=== PATIENT | female | born 1980 | race African-American/Black ===

== ENCOUNTER 2016-05-28 07:05 | Emergency (ER) | payer MEDICAID, OTHER ==
[~2016-05-28] VITALS: Ht 165.1 cm; Wt 75.0 kg
[~2016-05-28 07:05] MED LIST: HYDR50 PO; LORA-392 PO; PREV15CA20 PO; ZOFR4TAB3 SL
[2016-05-28 07:09] VITALS: BP 108/58; PULSE 82; RESP 20; TEMP 97.9; O2SAT 100
--- NOTE | 2016-05-28 07:33 | PD ---
HPI Chief Complaint: Musculoskeletal Complaint Time Seen by Provider: 07:25 Travel History International Travel<30 days: No Contact w/Intl Traveler<30days: No Traveled to known affect area: No History of Present Illness HPI This is a 35-year-old female who presents to the emergency department with muscle cramps describes the muscle cramps as in her left upper chest and in her back. She says she always gets these when she gets dehydrated. She says multiple times in the past she's come in for this and she stated to get IV fluids and she feels much better afterwards. She says it happens a couple times a year. Her symptoms of been moderate, constant since last evening, and keeping her from sleeping. She denies any associated shortness of breath, diaphoresis or nausea. She denies any medical problems with no hypertension, hyperlipidemia, or diabetes. She does smoke marijuana. She denies any cocaine use or other illicit drugs. PFSH Past Medical History Diminished Hearing: No Immunizations Current: No Migraines: Yes Tetanus Vaccination: < 5 Years ?: Not LMP: 05/27/16 Past Surgical History Neurologic Surgery: Yes (HEAD SX DUE TO TRAUMA AND LAC REPAIR TO FOREHEAD ) Social History Alcohol Use: Yes (OCCASIONAL ) Tobacco Use: Yes (1 PPD ) Substance Use: Yes (USE CRACK COCAINE AND MARIJUANA ) Allergies-Medications (Allergen,Severity, Reaction): Coded Allergies: Penicillin (Verified Allergy, Severe, UNKNOWN, 05/28/16) Reported Meds & Prescriptions Reported Meds & Active Scripts Active No Active Prescriptions or Reported Medications Review of Systems Except as stated in HPI: all other systems reviewed are Neg Physical Exam Narrative GENERAL:Well appearing, no acute distress SKIN: Warm and dry. HEAD: Atraumatic. Normocephalic. EYES: Pupils equal and round. No injection or drainage. ENT: Moist mucous membranes NECK: Trachea midline. CARDIOVASCULAR: Regular rate and rhythm. No murmur appreciated. RESPIRATORY: Clear to auscultation. Breath sounds equal bilaterally. GASTROINTESTINAL: Abdomen soft, non-tender, nondistended. MUSCULOSKELETAL: No obvious deformities. NEUROLOGICAL: Awake and alert. No obvious cranial nerve deficits. Moving all extremities. PSYCHIATRIC: Appropriate mood and affect; insight and judgment normal. Data Data Last Documented VS Vital Signs Date Time Temp Pulse Resp B/P Pulse Ox O2 Delivery O2 Flow Rate FiO2 05/28/16 07:09 97.9 82 20 108/58 100 Room Air Orders Complete Blood Count With Diff (05/28/16 07:30) Basic Metabolic Panel (Bmp) (05/28/16 07:30) Creatine Kinase (Cpk) (05/28/16 07:30) ^ Insert Iv (05/28/16 07:30) Sodium Chlor 0.9% 1000 Ml Inj (Ns 1000 M (05/28/16 08:15) CKMB (05/28/16 07:30) CKMB% (05/28/16 07:30) Labs Laboratory Tests Test 05/28/16 07:30 White Blood Count 5.2 TH/MM3 Red Blood Count 4.29 MIL/MM3 Hemoglobin 12.4 GM/DL Hematocrit 38.0 % Mean Corpuscular Volume 88.6 FL Mean Corpuscular Hemoglobin 28.9 PG Mean Corpuscular Hemoglobin 32.6 % Concent Red Cell Distribution Width 13.4 % Platelet Count 223 TH/MM3 Mean Platelet Volume 7.5 FL Neutrophils (%) (Auto) 36.1 % Lymphocytes (%) (Auto) 49.6 % Monocytes (%) (Auto) 9.1 % Eosinophils (%) (Auto) 4.4 % Basophils (%) (Auto) 0.8 % Neutrophils # (Auto) 1.9 TH/MM3 Lymphocytes # (Auto) 2.6 TH/MM3 Monocytes # (Auto) 0.5 TH/MM3 Eosinophils # (Auto) 0.2 TH/MM3 Basophils # (Auto) 0.0 TH/MM3 CBC Comment DIFF FINAL Differential Comment Sodium Level 140 MEQ/L Potassium Level 3.8 MEQ/L Chloride Level 107 MEQ/L Carbon Dioxide Level 27.7 MEQ/L Anion Gap 5 MEQ/L Blood Urea Nitrogen 12 MG/DL Creatinine 0.94 MG/DL Estimat Glomerular Filtration 81 ML/MIN Rate Random Glucose 79 MG/DL Calcium Level 8.1 MG/DL Total Creatine Kinase 321 U/L MDM Medical Decision Making Medical Screen Exam Complete: Yes Emergency Medical Condition: Yes Interpretation(s) Afebrile, no tachycardia, normotensive No leukocytosis Electrolytes are reassuring Differential Diagnosis Dehydration, electrolyte abnormality, acute coronary syndrome Narrative Course This is a 35-year-old female who presents to the emergency department with left- sided chest discomfort that she describes as muscle cramps that she's had before. She think she needs IV fluids. She is placed on a monitor and an IV was established. EKG was nonischemic. She has no risk factors for heart disease. Labs are obtained which were reassuring with a mildly elevated CK. She was given 2 L of IV fluids and feels much better. Patient will be discharged. Diagnosis Primary Impression: Muscle cramps Patient Instructions: General Instructions Additional Instructions: If you develop severe chest pain, shortness of breath, sweating, lightheadedness , dizziness or difficulty breathing return to the emergency department immediately. Followup with your primary care physician in 2-3 days if your symptoms are not resolved. Med/Other Pt SpecificInfo: No Change to Meds Scripts No Active Prescriptions or Reported Meds Disposition: 01 DISCHARGE HOME Condition: Stable Monica Damon MD May 28, 2016 07:33
[2016-05-28 07:43] LABS: AUTOMATED NEUTROPHIL # 1.9 TH/MM3 (1.8-7.7); BASOPHIL % 0.8 % (0.0-2.0); EOSINOPHIL # 0.2 TH/MM3 (0-0.4); EOSINOPHIL % 4.4 % (0.0-4.0); HEMO FLAGS DIFF FINAL; LYMPH % 49.6 % (9.0-44.0); LYMPHOCYTE # 2.6 TH/MM3 (1.0-4.8); MEAN CELL VOLUME 88.6 FL (80.0-100.0); MEAN CORPUSCULAR HEMOGLOBIN 28.9 PG (27.0-34.0); MEAN CORPUSCULAR HGB CONC 32.6 % (32.0-36.0); MONO % 9.1 % (0.0-8.0); NEUT % 36.1 % (16.0-70.0); PLATELET COUNT 223 TH/MM3 (150-450); RED BLOOD COUNT 4.29 MIL/MM3 (4.00-5.30); RED CELL DISTRIBUTION WIDTH 13.4 % (11.6-17.2); WHITE BLOOD COUNT 5.2 TH/MM3 (4.0-11.0)
[2016-05-28 08:06] LABS: BICARBONATE 27.7 MEQ/L (21.0-32.0); POTASSIUM 3.8 MEQ/L (3.5-5.1)
[2016-05-28] MEDS ORDERED: SODIUM CHLOR 0.9% 1000 ML INJ 1,000 ML IV SCH (08:15)
[2016-05-28 08:25] LABS: CKMB 2.4 NG/ML (0.5-3.6)
--- NOTE | 2016-05-28 15:49 | EKG ---
Date Performed: 05/28/2016 Time Performed: 07:29:22 PTAGE: 35 years EKG: Sinus rhythm NORMAL ECG PREVIOUS TRACING 11/10/2013 @ 05.55.58 Compared to prior tracing no significant change DOCTOR: Minda Rosen Interpretating Date/Time 05/28/2016 15:47:21
== END 2016-05-28 09:03 | disposition home or self-care (01) ==
LOC: NEPC 07:05
DX: R25.2 Cramp and spasm (principal); R07.9 Chest pain, unspecified; F17.210 Nicotine dependence, cigarettes, uncomplicated; F12.90 Cannabis use, unspecified, uncomplicated; F14.90 Cocaine use, unspecified, uncomplicated; Z88.0 Allergy status to penicillin
CPT/HCPCS: 80048; 82550; 82552; 85025; 93005; 99283; J7030

== ENCOUNTER 2017-04-12 08:54 | Emergency (ER) | payer SELFPAY ==
[~2017-04-12] VITALS: Ht 165.1 cm; Wt 75.0 kg
[2017-04-12 08:55] VITALS: BP 112/68; PULSE 85; RESP 16; TEMP 98.6; O2SAT 100
--- NOTE | 2017-04-12 09:32 | PD ---
HPI Chief Complaint: Injury Time Seen by Provider: 09:18 Travel History International Travel<30 days: No Contact w/Intl Traveler<30days: No Traveled to known affect area: No History of Present Illness HPI This is a 36-year-old female here with right ankle pain after twisting injury several days ago. Patient reports she originally injured the ankle by a sharp and fall approximately 4 months ago. At that time she had pain in the posterior aspect of the ankle. She immobilize the area using an ankle brace which improved her symptoms. She reinjured the site several days ago. She denies paresthesia or weakness in the extremity. Pain with weightbearing and range of motion. Repeat with immobilization and rest. Symptoms severity moderate. PFSH Past Medical History Medical History: Denies Significant Hx Diminished Hearing: No Immunizations Current: No Migraines: Yes Tetanus Vaccination: < 5 Years ?: Not LMP: 04/10/17 Past Surgical History Surgical History: No Previous Surgery Neurologic Surgery: Yes (HEAD SX DUE TO TRAUMA AND LAC REPAIR TO FOREHEAD ) Social History Alcohol Use: Yes (OCCASIONAL ) Tobacco Use: Yes (1 PPD ) Substance Use: Yes (USE CRACK COCAINE AND MARIJUANA ) Allergies-Medications (Allergen,Severity, Reaction): Coded Allergies: penicillin G (Unverified Allergy, Severe, UNKNOWN, 04/12/17) Reported Meds & Prescriptions Reported Meds & Active Scripts Active No Active Prescriptions or Reported Medications Review of Systems Except as stated in HPI: all other systems reviewed are Neg Physical Exam Narrative GENERAL: Alert and well-appearing 36-year-old female. SKIN: Warm and dry. HEAD: Normocephalic. Atraumatic EYES: No injection or drainage. NECK: Supple, trachea midline. MUSCULOSKELETAL: No cyanosis, or edema. Right lower extremity: Tenderness to medial malleolus and over the Achilles tendon. There are minimal swelling. Negative Phillips's test. Patient is able to dorsiflex and plantarflex the foot. 2+ dorsal pedis pulse. Brisk Cap refill. Data Data Last Documented VS Vital Signs Date Time Temp Pulse Resp B/P (MAP) Pulse Ox O2 Delivery O2 Flow Rate FiO2 04/12/17 08:55 98.6 85 16 112/68 (83) 100 Orders Orders Ankle, Complete ([id number]) (04/12/17 ) Alonso Bandage (1/30/18 10:37) MDM Medical Decision Making Medical Screen Exam Complete: Yes Emergency Medical Condition: Yes Differential Diagnosis Achilles tendon injury, ankle fracture, ankle sprain Narrative Course 36-year-old female here with right pain. The extremity is neurovascularly intact. I suspect that this is a minor Achilles tendon injury. The injury is minor as the patient is able to dorsiflex and plantarflex the foot. X-ray of the ankle negative for fracture dislocation. Patient will be placed in an Alonso wrap and ankle stirrup. Instructed to follow with or throat. Rest ice and elevate the extremity. Diagnosis Primary Impression: Ankle sprain Qualified Codes: S93.401A - Sprain of unspecified ligament of right ankle, initial encounter Referrals: [facility] Additional Instructions: Alonso wrap and ankle stirrup as directed. Ibuprofen 600-800 mg every 6-8 hours as needed for pain. Follow-up with the [facility]. If symptoms fail to improve follow-up with orthopedic doctor. Scripts No Active Prescriptions or Reported Meds Disposition: 01 DISCHARGE HOME Condition: Stable Juliana Ames Apr 12, 2017 09:32
--- NOTE | 2017-04-12 10:20 | RADRPT ---
EXAM DATE/TIME: 04/12/2017 09:47 [facility] COMPARISON: No previous studies available for comparison. INDICATIONS : Right ankle pain, after fall. MEDICAL HISTORY : None. SURGICAL HISTORY : None. ENCOUNTER: Initial ACUITY: 4 - 6 months PAIN SCORE: 6/10 LOCATION: Right ankle FINDINGS: Three view exam was performed of the right ankle. The bony structures are in normal alignment. No e vidence of fracture, dislocation, or soft tissue swelling. The ankle mortise is intact. No radiopaq ue foreign bodies are seen. Bony mineralization is normal. CONCLUSION: 1. No acute fracture or dislocation. Gerson Vazquez MD on April 12, 2017 at 10:14 Board Certified Radiologist. This report was verified electronically.
== END 2017-04-12 10:45 | disposition home or self-care (01) ==
LOC: NEPK 08:54
DX: S93.401A Sprain of unspecified ligament of right ankle, initial encounter (principal); X50.1XXA Overexertion from prolonged static or awkward postures, initial encounter
CPT/HCPCS: 73610; 99283; L1906